=== PATIENT | female | born 1950 | race Caucasian/White ===

== ENCOUNTER → 2017-07-28 | Outpatient (CLI) | payer MEDICARE, OTHER ==
[~2017-07-28] MED LIST: APIX5TAB PO; CART240C4 PO; FAMO20 PO; LABE200 PO; LANO0.1212 PO; LISI-587 PO; LORA-474 PO; LORTA5 PO; ROSU40 PO
--- NOTE | 2017-08-02 10:33 | RSPPFT ---
DATE OF PROCEDURE: 07/28/17 COMMENTS: Spirometry is within normal limits. Lung volumes appear unremarkable. Diffusion capacity is mildly reduced. Flow volume loops appear unremarkable. IMPRESSION: 1. Essentially normal spirometry. 2. Mild reduction in diffusion capacity.
== END ==
LOC: PHRSP 09:25
DX: J44.9 Chronic obstructive pulmonary disease, unspecified (principal); R06.00 Dyspnea, unspecified; I10 Essential (primary) hypertension; R05 Cough
CPT/HCPCS: 94010; 94726; 94729